=== PATIENT | female | born 1940 | race Caucasian/White ===

== ENCOUNTER 2019-11-03 11:24 | Inpatient (IN) | payer MEDICARE, MEDICAID ==
[~2019-11-03] VITALS: Ht 157.5 cm; Wt 57.2 kg
--- NOTE | 2019-11-03 11:46 | NUR ---
joseph, from [facility], sent by PMD due to failure to thrive x 2 days. PT RESPONSIVE TO PAINFUL STIMULI. ALL EXTREMITIES SLIGHTLY CONTRACTED. SKIN INTACT, WARM, AND DRY. NO EVIDENCE OF SOB, PAIN. NO ACUTE DISTRESS NOTED. ON MONITOR AND READY FOR EVAL.
[2019-11-03] MEDS ORDERED: ONDANSETRON HCL/PF 4 MG/2 ML VIAL ONE (11:48)
[2019-11-03] MEDS ORDERED: IV NS 0.9% 500 ML BAG IV ONE (12:00)
[2019-11-03] MEDS ORDERED: ONDANSETRON HCL/PF 4 MG/2 ML VIAL IVP ONE (12:00)
--- NOTE | 2019-11-03 12:08 | NUR ---
MOVE SHEET SUBMITTED TO ADMITTING AND CALLED FOR MS BED.
[2019-11-03 12:11] LABS: BASOPHILS # (AUTO) 0.1 /CMM (0.0-0.2); BASOPHILS % (AUTO) 0.6 % (0.0-2.0); EOSINOPHILS % (AUTO) 1.1 % (0.0-6.0); HEMATOCRIT 45 % (33-45); HEMOGLOBIN 14.3 g/dL (11.5-14.8); LYMPHOCYTES # (AUTO) 1.5 /CMM (0.8-4.8); MEAN CORPUSCULAR HGB CONC 32 g/dl (31.0-36.0); MEAN CORPUSCULAR VOLUME 91 fL (82-100); MONOCYTES # (AUTO) 0.7 /CMM (0.1-1.30); NEUTROPHILS # (AUTO) 9.3 /CMM (1.8-8.9); NEUTROPHILS % (AUTO) 79.3 % (43.0-81.0); PLATELET COUNT (AUTO) 208 /CMM (150-450); RED BLOOD CELL COUNT(AUTO) 4.92 MIL/uL (4.0-5.2); WHITE BLOOD COUNT (AUTO) 11.8 K/uL (4.3-11.0)
[2019-11-03 12:28] LABS: ALANINE AMINOTRANSFERASE 39 U/L (12-78); ALBUMIN 4.3 g/dL (3.4-5.0); ALKALINE PHOSPHATASE 76 U/L (46-116); ASPARTATE AMINOTRANSFERASE 41 U/L (15-37); BILIRUBIN,DIRECT 0.1 mg/dL (0.0-0.2); BILIRUBIN,TOTAL 0.6 mg/dL (0.2-1.0); CARBON DIOXIDE 30 mmol/L (21-32); CHLORIDE 108 mmol/L (98-107); CREATININE 1.1 mg/dL (0.6-1.3); GLUCOSE 126 mg/dL (74-106); SODIUM SERUM 147 mmol/L (136-145); TOTAL PROTEIN, SERUM 8.3 g/dL (6.4-8.2); UREA NITROGEN, BLOOD 45 mg/dL (7-18)
--- NOTE | 2019-11-03 12:30 | NUR ---
URINE SENT TO STAT LAB
[2019-11-03 12:31] LABS: SERUM AMMONIA 12 umol/L (11-32)
[2019-11-03 12:34] LABS: CALCIUM, SERUM 9.8 mg/dL (8.5-10.1); LIPASE 119 U/L (73-393)
--- NOTE | 2019-11-03 12:39 | NUR ---
DOOR FRAMER AT BEDSIDE
[2019-11-03] MEDS ORDERED: PANT20TA2 PO (12:40)
[2019-11-03] MEDS ORDERED: LETR2.5T PO (12:40)
[2019-11-03] MEDS ORDERED: MAG-55 PO (12:40)
[2019-11-03] MEDS ORDERED: LORA-259 PO (12:40)
[2019-11-03] MEDS ORDERED: BISA10SU11 RC (12:40)
[2019-11-03] MEDS ORDERED: SODI3.5O5 RIGHTEYE (12:40)
[2019-11-03] MEDS ORDERED: MAGN400O6 PO (12:40)
[2019-11-03] MEDS ORDERED: SENN-18 PO (12:40)
[2019-11-03] MEDS ORDERED: SPIR25TA PO (12:40)
[2019-11-03] MEDS ORDERED: METO-357 PO (12:40)
[2019-11-03] MEDS ORDERED: LATA2.5D7 RIGHTEYE (12:40)
[2019-11-03] MEDS ORDERED: LACT10SO PO (12:40)
[2019-11-03] MEDS ORDERED: ONDA4TAB11 PO (12:40)
[2019-11-03] MEDS ORDERED: IPRA0.2S49 IH (12:40)
[2019-11-03] MEDS ORDERED: ACET325T53 PO (12:40)
[2019-11-03] MEDS ORDERED: APIX2.5T PO (12:40)
[2019-11-03 12:48] LABS: APPEARANCE,URINE Slightly Cloudy (CLEAR); BILIRUBIN,URINE Negative (NEGATIVE); BLOOD, URINE Small Ery/uL (NEGATIVE); COLOR,URINE Yellow (YELLOW); KETONES,URINE 15 (NEGATIVE); LEUKOCYTE ESTERASE ,URINE Trace (NEGATIVE); NITRITE, URINE Positive (NEGATIVE); PH,URINE 5.5 (5.0-8.0); PROTEIN,URINE 30 mg/dl (NEGATIVE); UGLUCOSE Negative (NEGATIVE); UROBILINOGEN,URINE 0.2 EU/dL (0.2)
[2019-11-03 12:52] LABS: BACTERIA,URINE Many /HPF (None Seen); WBC,URINE 21-50 /HPF (0-3)
[2019-11-03 12:53] LABS: SQUAMOUS EPITHELIAL CELL,UR Few /HPF (None Seen)
--- NOTE | 2019-11-03 12:57 | NUR ---
dampproofer emergency services professional JOHN lead.
[2019-11-03] MEDS ORDERED: IV NS 0.9% 1,000 ML BAG IV ONE (13:00)
[2019-11-03] MEDS ORDERED: CEFTRIAXONE 1GM BAG (ER ONLY) 50 ML IV ONE (13:02)
--- NOTE | 2019-11-03 13:13 | NUR ---
PT TAKEN TO RADIOLOGY FOR CT
[2019-11-03] MEDS ORDERED: CEFTRIAXONE 1GM BAG (ER ONLY) 1 GM/50 ML PIGGYBACK IV ONE (13:30)
--- NOTE | 2019-11-03 14:14 | NUR ---
BOARD FINISHER CANCELED
--- NOTE | 2019-11-03 15:02 | NUR ---
PT RESTING COMFORTABLY IN BED. NO COMPLAINTS AT THIS TIME. VSS. WILL CONT TO MONITOR.
--- NOTE | 2019-11-03 15:52 | NUR ---
BED ASSIGN [id number]
--- NOTE | 2019-11-03 17:27 | NUR ---
REPORT GIVEN TO DORA HARRINGTON FOR [id number] MS, NBA SCHREIBER
--- NOTE | 2019-11-03 18:37 | NUR ---
PT TRANSFFERED TO UNIT VIA KRYSTLE
--- NOTE | 2019-11-03 18:54 | NUR ---
MS/RN NOTES ADMITTED A FEMALE PATIENT 79 Y/O FROM ER VIA GURNEY ALERT AND ORIENTED X2. PATIENT SKIN IS INTACT. NO RESPIRATORY DISTRESS NOTED. PATIENT VERBALIZED THAT SHE WANT TO SLEEP. WILL ENDORSED TO SEARCH ANALYST FOR DEZ.
[2019-11-03 20:00] VITALS: BP_SYST 112; BP_SYST 94; BP_DIAS 64; BP_DIAS 66
--- NOTE | 2019-11-03 20:00 | NUR ---
RN Notes Patient awake, alert and oriented x2 with periods of confusion. Vital signs stable, afebrile. Denies any pain and discomfort at this time, on room air with good saturation. Tele monitor reads sinus rhythm with heart rate at 62. Skin check done, noted with redness on sacral and perineal area, cleansed with soap and water and skin barrier applied. Paged Dr Wellington for admitting orders, awaiting for return call. Will continue to monitor.
[2019-11-03] MEDS ORDERED: ACETAMINOPHEN 325 MG TABLET PO PRN (21:30)
[2019-11-03] MEDS ORDERED: BISACODYL SUPP (10 MG) 10 MG/SUPP.RECT SUPP.RECT RC PRN (21:30)
[2019-11-03] MEDS ORDERED: MORPHINE SULFATE SOLN CONCENTRATED 20 MG/ML SL PRN (21:30)
[2019-11-03] MEDS ORDERED: IPRATROPIUM NEB FS 0.5 MG/2.5 ML AMPUL.NEB NEB PRN (21:30)
[2019-11-03] MEDS ORDERED: HALOPERIDOL DECANOATE IM 100 MG/ML AMPUL IM ONE ×2 (21:30→22:30)
[2019-11-03] MEDS ORDERED: MAGNESIUM HYDROXIDE 30 ML UDC PO PRN (21:30)
[2019-11-03] MEDS ORDERED: LACTULOSE 10 G/15 ML UDC (PYXIS) PO PRN (21:30)
[2019-11-03 22:00] VITALS: BP 110/59
[2019-11-03] MEDS: LATANOPROST EYE DROP 0.005% 2.5 ML BOTTLE RIGHTEYE SCH (22:00)
[2019-11-03] MEDS ORDERED: IV NS 0.9% 1,000 ML BAG IV PRN (22:00)
[2019-11-04] VITALS (7 sets, daily range): BP systolic 101–129; BP diastolic 51–74
--- NOTE | 2019-11-04 04:30 | NUR ---
RN Notes 11/03 - Admission orders received from Dr Wellington, continue all medications from SNF except lorazepam. IVF NS at 75 ml/hr and Haldol decanoate 50 mg IM x1 also ordered, called pharmacy to verify orders. 11/03 - Called pharmacy again to follow up on the Haldol order. Spoke to Jennifer, she said that she saw that hospital pharmacist is working on it, but she will check again the order. 11/03 @ 5 - F/U with the pharmacy regarding haldol order. Spoke to Jennifer, she said that the patient should start with PO haldol first to stabilize the patient before giving IM haldol decanoate. And its not showing in patient medication list. Patient is calm and cooperative at this time no indication for now per pharmacist and needs to clarify with Dr Wellington. Called Dr Wellington, he said that the patient is refusing PO meds and patient is on this medication for 6 months. Pharmacy made aware, awaiting to verify haldol order. 0030 - Medication not verified at this time, pharmacy wants to know when was the last dose administered to the patient. Haldol IM usually given [id number]. 0430 - Called [facility] and spoke to Nurse Bernal, he said that there's no standing order for the haldol decanoate for this patient. He even looked at the medication administration record and haldol was not administered since july last year. Will follow up with Dr Wellington in the morning. Patient is calm and cooperative, compliant with care and treatment.
[2019-11-04] MEDS ORDERED: SIMETHICONE 80 MG TAB.CHEW PO PRN (05:30)
--- NOTE | 2019-11-04 07:15 | NUR ---
RN Notes Patient asleep, no signs of distress and discomfort noted. Vital signs stable, afebrile. Patient more alert, calm and cooperative with care and treatment. Current diet tolerated well, able to eat egg sandwich and apple juice. Haldol order not administered, not verified by pharmacy.Kept clean and dry. All needs attended. Will continue to monitor.
[2019-11-04] MEDS: SPIRONOLACTONE 25 MG TABLET PO SCH (08:26)
[2019-11-04] MEDS: PANTOPRAZOLE 40 MG TABLET.DR PO SCH (08:26)
[2019-11-04] MEDS: LETROZOLE 2.5 MG TABLET PO SCH (08:29)
[2019-11-04] MEDS: APIXABAN 2.5 MG TABLET PO SCH ×2 (08:29→16:39)
[2019-11-04] MEDS: SODIUM CHLORIDE 5% OPHTH OINT 3.5 GM TUBE RIGHTEYE SCH ×3 (09:00→16:40)
[2019-11-04] MEDS ORDERED: LETROZOLE 2.5 MG TABLET PO SCH (09:00)
--- NOTE | 2019-11-04 09:26 | NUR ---
WOUND CARE S CONSULT : SEEN PATIENT AT BEDSIDE, PATIENT PRESENTS WITH INCONTINENCE , CURRENT SCOOBY SCALE IS 11, PATIENT NOTED TO HAVE SACRAL,BOTH BUTTOCKS INCONTINENCE ASSOCIATED SKIN DAMAGE, AND REDNESS PERINEAL AREA, POA,DISCUSSED WITH NURSING STAFF ,RECOMMENDATION MADE FOR SKIN PROTECTION AND CARE ,WILL SEE MD JACOB IN AGREEMENT WITH PLAN OF CARE,ISOFLEX MARS BED IN USE Addendum: 11/04/19 at 0936 by LENORE SANDY RN Amended: Links added.
--- NOTE | 2019-11-04 09:31 | NUR ---
MS/RN NOTE NON-ADMIN Pharmacy does not have Doc-128 eye drops. Stated they will order it and it will be ready for tomorrow.
[2019-11-04] MEDS ORDERED: HALOPERIDOL DECANOATE IM 100 MG/ML AMPUL IM ONE (13:00)
[2019-11-04] MEDS: CLOTRIMAZOLE 1% 15 GM TUBE TP SCH (16:40)
--- NOTE | 2019-11-04 19:38 | NUR ---
MS/RN CLOSING NOTE Patient is resting in bed, A/O x2, showing no signs of acute distress or SOB, saturating >95% on RA. IV line in the right wrist is clean and intact running NS @ 75ml/hr. Patient kept clean and dry throughout shift, all patient needs met, all due meds given. Bed is in lowest position, side rails x3 in upright position, call light is within reach and patient is aware of how to call for assistance when needed. Will endorse to power and recovery shift engineer.
--- NOTE | 2019-11-04 20:18 | NUR ---
MS TOOL AND DIE REPAIRER INITIAL NOTES RECEIVED REPORT FROM AM NURSE AND SEEN PT IN BED AWAKE AND ALERT ,CONFUSED WITH IVF NS AT 75ML/HR INFUSING AT THIS TIME. NOT IN ANY ACUTE DISTRESS NOTED. RESPIRATION EVEN AND NON-LABORED, SKIN WARM AND DRY TO TOUCH. KEPT HER WARM AND COMFORTABLE AT ALL TIMES. BED IN LOW AND LOCK IN POSITION WITH SIDE RAILS X3 UP. BED ALARM SET FOR SAFETY. WILL CONTINUE MONITORING.
[2019-11-04] MEDS: SENNOSIDES 8.6 MG TABLET PO SCH (21:45)
[2019-11-04] MEDS: ATORVASTATIN 10 MG TABLET PO SCH (21:46)
[2019-11-04] MEDS: METOPROLOL SUCCINATE 50 MG TAB.SR.24H PO SCH (21:46)
[2019-11-04] MEDS: LATANOPROST EYE DROP 0.005% 2.5 ML BOTTLE RIGHTEYE SCH (21:48)
[2019-11-04] MEDS: IV NS 0.9% 1,000 ML IV PRN ×2 (22:12)
--- NOTE | 2019-11-05 00:30 | NUR ---
ms optometry professor notes pt sleeping comfortably in bed without any acute distress noted. ivf still infusing.
--- NOTE | 2019-11-05 01:55 | NUR ---
ms hydraulics teacher notes pt sleeping comfortably in bed without any acute distress noted. IVF still infusing.
[2019-11-05 06:28] LABS: BASOPHILS # (AUTO) 0.1 /CMM (0.0-0.2); BASOPHILS % (AUTO) 0.8 % (0.0-2.0); EOSINOPHILS % (AUTO) 2.1 % (0.0-6.0); HEMATOCRIT 39 % (33-45); HEMOGLOBIN 12.5 g/dL (11.5-14.8); LYMPHOCYTES % (AUTO) 29.6 % (20.0-44.0); MEAN CORPUSCULAR HGB CONC 32 g/dl (31.0-36.0); MEAN CORPUSCULAR VOLUME 90 fL (82-100); MONOCYTES # (AUTO) 0.5 /CMM (0.1-1.30); MONOCYTES % (AUTO) 6.7 % (2.0-12.0); NEUTROPHILS # (AUTO) 4.1 /CMM (1.8-8.9); NEUTROPHILS % (AUTO) 60.8 % (43.0-81.0); PLATELET COUNT (AUTO) 149 /CMM (150-450); RED BLOOD CELL COUNT(AUTO) 4.33 MIL/uL (4.0-5.2); WHITE BLOOD COUNT (AUTO) 6.7 K/uL (4.3-11.0)
--- NOTE | 2019-11-05 06:42 | NUR ---
ms varnish filterer closing notes pt back to sleep after morning care done. all due meds given and all needs met. stable seth the night and slept well. no signs of any acute distress noted. ivf still infusing. kept her warm and comfortable at all times.bed alarm set for pt safety. will endorse to am nurse for continuity of care.
[2019-11-05 06:53] LABS: CALCIUM, SERUM 8.5 mg/dL (8.5-10.1); CREATININE 0.8 mg/dL (0.6-1.3); POTASSIUM 4.3 mmol/L (3.5-5.1)
--- NOTE | 2019-11-05 07:35 | NUR ---
MS/RN OPENING NOTE Patient is resting in bed, A/O x2, showing no signs of acute distress or SOB, saturating >95% on RA. IV line in the right wrist is clean and intact running NS @ 75ml/hr. Patient has no complaints of pain at this time. Bed is in lowest position, side rails x3 in upright position, fall, safety and aspiration precautions enforced. Will endorse to night club manager.
[2019-11-05 08:00] VITALS: BP 125/56
[2019-11-05] MEDS: SPIRONOLACTONE 25 MG TABLET PO SCH (08:48)
[2019-11-05] MEDS: APIXABAN 2.5 MG TABLET PO SCH ×2 (08:49→17:10)
[2019-11-05] MEDS: LETROZOLE 2.5 MG TABLET PO SCH (08:49)
[2019-11-05] MEDS: CLOTRIMAZOLE 1% 15 GM TUBE TP SCH ×2 (08:50→17:12)
[2019-11-05] MEDS: PANTOPRAZOLE 40 MG TABLET.DR PO SCH (08:52)
[2019-11-05] MEDS: SODIUM CHLORIDE 5% OPHTH OINT 3.5 GM TUBE RIGHTEYE SCH ×3 (09:00→17:12)
--- NOTE | 2019-11-05 09:24 | NUR ---
MS/RN NON-ADMIN Eye drops (sodium chloride cha) not yet available at pharmacy.
[2019-11-05] MEDS: IV NS 0.9% 1,000 ML IV PRN (13:43)
[2019-11-05 16:00] VITALS: BP 116/68
--- NOTE | 2019-11-05 19:58 | NUR ---
RN OPENING NOTES RECEIVED PATIENT AWAKE IN BED. A/OX1 .NO SIGNS OF DISTRESS OR DISCOMFORT. BREATHING EVEN AND UNLABORED. IV ACCESS IN LFA WITH NS INFUSING, PATENT AND INTACT, NO SIGNS OF REDNESS OR INFILTRATION. BED IN LOW LOCKED POSITION WITH SIDE RAILS X2. CALL LIGHT WITHIN REACH. WILL CONTINUE TO MONITOR.
--- NOTE | 2019-11-05 19:59 | NUR ---
MS/RN CLOSING NOTE Patient is resting in bed, A/O x2, showing no signs of acute distress or SOB, saturating >95% on RA. IV line in the left forearm is clean and intact running NS @ 75ml/hr. Patient has no complaints of pain at this time. All patient needs met, all due meds given. Bed is in lowest position, side rails x3 in upright position, fall, safety and aspiration precautions enforced. Will endorse to retail shift supervisor.
[2019-11-05] MEDS: METOPROLOL SUCCINATE 50 MG TAB.SR.24H PO SCH (21:13)
[2019-11-05] MEDS: ATORVASTATIN 10 MG TABLET PO SCH (21:17)
[2019-11-05] MEDS: SENNOSIDES 8.6 MG TABLET PO SCH (21:17)
[2019-11-05] MEDS: MIRTAZAPINE 15 MG TABLET PO SCH (21:17)
[2019-11-05] MEDS: LATANOPROST EYE DROP 0.005% 2.5 ML BOTTLE RIGHTEYE SCH (21:18)
--- NOTE | 2019-11-06 07:08 | NUR ---
RN CLOSING NOTES PATIENT RESTING IN BED, EASILY AROUSABLE. A/OX1 .NO SIGNS OF DISTRESS OR DISCOMFORT. BREATHING EVEN AND UNLABORED. IV ACCESS IN LFA WITH NS INFUSING, PATENT AND INTACT, NO SIGNS OF REDNESS OR INFILTRATION. ALL NEEDS MET. NO SIGNIFICANT CHANGES THROUGH THE NIGHT. PATIENT KEPT CLEAN DRY AND COMFORTABLE. BED IN LOW LOCKED POSITION WITH SIDE RAILS X2. CALL LIGHT WITHIN REACH. ENDORSED TO AM SHIFT FOR DEZ.
--- NOTE | 2019-11-06 07:19 | NUR ---
MS RN OPENING NOTES RECEIVED PATIENT AWAKE IN BED IN NO ACUTE SIGNS OF DISTRESS. A/O X1. CALM AND QUIET AT THIS TIME. ON ROOM AIR, BREATHING EVEN AND UNLABORED. IV ACCESS ON LFA G#22 INTACT AND PATENT, IVF OF NS @ 75ML/HR INFUSING WELL, NO SIGNS OF REDNESS OR INFILTRATION. SAFETY MEASURES IN PLACE: BED IN LOW LOCKED POSITION WITH SIDE RAILS UP X2. CALL LIGHT WITHIN REACH. WILL CONTINUE TO MONITOR.
[2019-11-06] MEDS: PANTOPRAZOLE 40 MG TABLET.DR PO SCH (07:45)
[2019-11-06 08:00] VITALS: BP 121/86
[2019-11-06] MEDS: SPIRONOLACTONE 25 MG TABLET PO SCH (08:20)
[2019-11-06] MEDS: APIXABAN 2.5 MG TABLET PO SCH ×2 (08:20→17:27)
[2019-11-06] MEDS: LETROZOLE 2.5 MG TABLET PO SCH (08:22)
[2019-11-06] MEDS: CLOTRIMAZOLE 1% 15 GM TUBE TP SCH ×2 (08:29→17:27)
[2019-11-06] MEDS: SODIUM CHLORIDE 5% OPHTH OINT 3.5 GM TUBE RIGHTEYE SCH ×3 (08:29→17:26)
[2019-11-06] MEDS: IV NS 0.9% 1,000 ML IV PRN (15:16)
[2019-11-06 16:00] VITALS: BP 132/65
--- NOTE | 2019-11-06 18:40 | NUR ---
MS RN CLOSING NOTES PATIENT IN BED AWAKE WITH FAMILY AT BEDSIDE AT THIS TIME. HOB KEPT ELEVATED. A/O X1. VERBALLY RESPONSIVE WITH EPISODE OF RESTLESSNESS AND CONFUSION NOTED, REDIRECTED PRN. ON ROOM AIR, TOLERATING WELL WITH NO ACUTE RESPIRATORY DISTRESS NOTED DURING THE DAY. IV ACCESS ON LFA G#22 INTACT AND PATENT, IVF OF NS @ 75ML/HR INFUSING WELL, NO SIGNS OF REDNESS OR INFILTRATION. SAFETY MEASURES IN PLACE: BED IN LOW LOCKED POSITION WITH SIDE RAILS UP X2. CALL LIGHT WITHIN REACH. ALL NEEDS AND CARE PROVIDED WELL. WILL ENDORSE TO COOK FRUIT NURSE FOR DEZ.
--- NOTE | 2019-11-06 19:00 | NUR ---
RN medsurg opening notes Received Pt from morning nurse. Pt is resting in bed comfortably with family at the bedside. Pt is alert and orientedX1. Respiration is normal in room air. No SOB. No S/S of distress noted. IV sites at LFA# 22 is clean, intact, infusing well NS @ 75 ml/hr. Safety precautions is maintained. Bed at low position, brakes locked, side rails upX3 and call light is within reach. Will continue to monitor.
[2019-11-06 20:00] VITALS: BP_SYST 154; BP_DIAS 100; BP_DIAS 101
[2019-11-06 21:00] VITALS: BP 153/75
[2019-11-06] MEDS: SENNOSIDES 8.6 MG TABLET PO SCH (21:04)
[2019-11-06] MEDS: ATORVASTATIN 10 MG TABLET PO SCH (21:04)
[2019-11-06] MEDS: MIRTAZAPINE 15 MG TABLET PO SCH (21:04)
[2019-11-06] MEDS: METOPROLOL SUCCINATE 50 MG TAB.SR.24H PO SCH (21:06)
[2019-11-06] MEDS: LATANOPROST EYE DROP 0.005% 2.5 ML BOTTLE RIGHTEYE SCH (21:09)
[2019-11-06 22:00] VITALS: BP 122/70
--- NOTE | 2019-11-07 06:40 | NUR ---
RN medsurg closing notes Pt is alert and orientedX1. Pt is sleeping in bed comfortably. Respiration is normal in room air. No SOB. No S/S of distress noted. VS is stable. Iv sites at LFA# 22 is clean, intact, patent and infusing well NS @ 75ml/hr. Routine meds were given as ordered. Kept Pt clean, dry and comfortable. All needs met and attended. Safety precautions is maintained. Bed at low position, brakes locked, side rails upX3 and call light is within reach and HOB elevated. Will endorse to morning nurse for DEZ
--- NOTE | 2019-11-07 07:46 | NUR ---
MS RN OPENING NOTES PATIENT IN BED RESTING COMFORTABLY. PATIENT IN NO ACUTE DISTRESS. NO SOB NOTED. PATIENT BREATHING IS EVEN AND UNLABORED. IV PATENT AND INTACT. PATIENT SAFETY PRECAUTIONS IN PLACE. PATIENT BED IS LOCKED AND IN LOWEST POSITION. CALL LIGHT WITHIN REACH. WILL CONTINUE TO MONITOR.
[2019-11-07 08:00] VITALS: BP 119/75
[2019-11-07] MEDS: PANTOPRAZOLE 40 MG TABLET.DR PO SCH (08:19)
[2019-11-07] MEDS: SPIRONOLACTONE 25 MG TABLET PO SCH (08:19)
[2019-11-07] MEDS: APIXABAN 2.5 MG TABLET PO SCH ×2 (08:20→16:32)
[2019-11-07] MEDS: LETROZOLE 2.5 MG TABLET PO SCH (08:20)
[2019-11-07] MEDS: SODIUM CHLORIDE 5% OPHTH OINT 3.5 GM TUBE RIGHTEYE SCH ×3 (08:22→16:36)
[2019-11-07] MEDS: CLOTRIMAZOLE 1% 15 GM TUBE TP SCH ×2 (08:22→16:36)
[2019-11-07 16:00] VITALS: BP 112/62
--- NOTE | 2019-11-07 19:00 | NUR ---
MS MANAGER MOLECULAR NOTE PATIENT MEDICALLY STABLE FOR DISCHARGE. PATIENT IN NO ACUTE DISTRESS. NO SOB NOTED. PATIENT BREATHING IS EVEN AND UNLABORED. PATIENT VITAL SIGNS WNL. PATIENT IV REMOVED. SKIN ASSESSED, NO NEW SKIN BREAKDOWN NOTED. PATENT BELONGINGS WENT HOME WITH DAUGHTER AND SON. DC INSTRUCTIONS PROVIDED, PATIENT UNABLE TO COMPREHEND. DC INSTRUCTIONS SIGNED BY TWO NURSES. PATIENT PLACED ON A 5150 HOLD. PATIENT TO BE DISCHARGED TO GPS AT [facility]. PATIENT KEPT CLEAN, DRY, AND COMFORTABLE THROUGHOUT SHIFT. FAMILY UPDATED. MD AWARE OF DISCHARGE.
[2019-11-08] MEDS ORDERED: MIRT7.5T10 PO (07:41)
[2019-11-08] MEDS ORDERED: ATOR10TA PO (07:41)
[2019-11-08] MEDS ORDERED: CLOT15CR63 TP (07:41)
[2019-11-08] MEDS ORDERED: IPRA0.2S9 IH (07:41)
[2019-11-08] MEDS ORDERED: SIME40DR2 PO (07:41)
== END 2019-11-07 18:50 | DRG 683 ==
LOC: ER 11:24 → TELE 17:16 → MED 11-04 09:01
PROVIDERS: ADMIT Internal Medicine; ATTEND Internal Medicine
DX: N17.9 Acute kidney failure, unspecified (principal); G93.40 Encephalopathy, unspecified; F03.91 Unspecified dementia, unspecified severity, with behavioral disturbance; E86.0 Dehydration; F20.9 Schizophrenia, unspecified; I11.0 Hypertensive heart disease with heart failure; I50.9 Heart failure, unspecified; E78.5 Hyperlipidemia, unspecified; Z90.12 Acquired absence of left breast and nipple; Z87.891 Personal history of nicotine dependence; Z82.49 Family history of ischemic heart disease and other diseases of the circulatory system; Z82.3 Family history of stroke; F31.9 Bipolar disorder, unspecified; Z88.0 Allergy status to penicillin; Z79.899 Other long term (current) drug therapy; Z79.51 Long term (current) use of inhaled steroids; C50.912 Malignant neoplasm of unspecified site of left female breast; C50.911 Malignant neoplasm of unspecified site of right female breast; Z86.73 Personal history of transient ischemic attack (TIA), and cerebral infarction without residual deficits; F29 Unspecified psychosis not due to a substance or known physiological condition; F39 Unspecified mood [affective] disorder; J44.9 Chronic obstructive pulmonary disease, unspecified; R62.7 Adult failure to thrive; I48.0 Paroxysmal atrial fibrillation; H54.40 Blindness, one eye, unspecified eye
CPT/HCPCS: 36415; 70450-TC; 71045-TC; 80048-TC; 80076-TC; 81000-TC; 82140-TC; 82962-TC; 83690-TC; 84484-TC; 85025-TC; 85730-TC; 87081-TC; 87086-TC; 87186-TC; G0378; J0696; J1631; J2405; J7030; J7040

== ENCOUNTER 2019-11-07 19:39 | Inpatient (IN) | payer MEDICARE, OTHER ==
[~2019-11-07] VITALS: Ht 157.5 cm; Wt 57.2 kg
--- NOTE | 2019-11-07 19:35 | NUR ---
GPS RN NOTES: ADMITTED 79 Y/O FEMALE. PT ADMITTED FROM [facility] TO GPS ON A 5150. PER HOLD PT IS HERE DUE TO INCREASED CONFUSION AND REFUSING CARE. ACCORDING TO PATIENT DAUGHTER PT HAS BEEN NON COMPLIANT WITH MEDICATION, NOT EATING OR DRINKING WATER, REFUSING CARE, AND INCREASE CONFUSION. UPON FACE TO FACE ASSESSMENT PT IS ALERT ORIENTED X1, CONFUSED, FORGETFUL, RESERVED, GUARDED, UNCOOPERATIVE, DISORGANIZED, IMPAIRED JUDGMENT, AND EASILY AGITATED. PT DENIES S/I OR H/I AT THIS TIME. PT STATED, " WHAT DO YOU WANT? " PT IS LEGALLY BLIND AND BED PASCAL. PT REFUSED TO SIGN PAPERS DUE TO CONFUSION. PTS SON CAME TO VISIT AND IS AT BEDSIDE. ENVIRONMENTAL SAFETY CHECK DONE Q15 MIN. ENCOURAGE PT TO VERBALIZED FEELINGS AND CONCERNS TO STAFF. ORIENTED TO THE UNIT. [facility] MED AWARE OF PTS ADMISSION AND NOTIFIED INSPECTOR OF DREDGING DR FOR MED RECON. THE INSPECTOR OF DREDGING DR WILL ASSESS PT TOMORROW MORNING. BELONGINGS AND CONTRABAND WERE DONE. NURSING ASSESSMENT DONE. 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 PICTURES NOTED AND FILED IN THE CHART. PT RIGHTS DISCUSSED BY [employer]. PROVIDED PT WITH HANDBOOK AND MED GUIDE. VITALS CHECKED WNL. NO S/S OF RESP DISTRESS. BREATHING EVEN AND UNLABORED. CONTINUE TO MONITOR.
[~2019-11-07 19:39] MED LIST: ACET325T53 PO; APIX2.5T PO; BISA10SU11 RC; IPRA0.2S49 IH; LACT10SO PO; LATA2.5D7 RIGHTEYE; LETR2.5T PO; LORA-259 PO; MAG-55 PO; MAGN400O6 PO; METO-357 PO; ONDA4TAB11 PO; PANT20TA2 PO; SENN-18 PO; SODI3.5O5 RIGHTEYE; SPIR25TA PO
[2019-11-07] MEDS ORDERED: BLOOD SUGAR DIAGNOSTIC 1 EACH STRIP IN ONE (20:00)
[2019-11-07] MEDS ORDERED: ACETAMINOPHEN 325 MG TABLET PO PRN (20:00)
[2019-11-07] MEDS ORDERED: ZOLPIDEM TARTRATE 5 MG TABLET PO PRN (20:00)
[2019-11-07] MEDS ORDERED: MAG HYDROX/AL HYDROX/SIMETH 30 ML UDC PO PRN (20:00)
[2019-11-07] MEDS ORDERED: QUETIAPINE FUMARATE 25 MG TABLET PO PRN (20:00)
[2019-11-07] MEDS ORDERED: MAGNESIUM HYDROXIDE 30 ML UDC PO PRN (20:00)
--- NOTE | 2019-11-07 21:00 | NUR ---
GPS RN NOTES: INFORMED MD NOTIFIED DR ALLEN REGARDING PT ADMISSION AND MED RECON. DR STATED HE WILL DO MED RECON AND ASSESS PT IN THE MORNING. CONTINUE TO MONITOR.
[2019-11-07 21:09] VITALS: BP 105/66
[2019-11-07 23:30] VITALS: BP 105/66
[2019-11-08] MEDS ORDERED: ATOR10TA PO (07:41)
[2019-11-08] MEDS ORDERED: IPRA0.2S9 IH (07:41)
[2019-11-08] MEDS ORDERED: CLOT15CR63 TP (07:41)
[2019-11-08] MEDS ORDERED: SIME40DR2 PO (07:41)
[2019-11-08] MEDS ORDERED: MIRT7.5T10 PO (07:41)
[2019-11-08 08:00] VITALS: BP 110/63
--- NOTE | 2019-11-08 09:00 | NUR ---
RN NOTE-PT RESTING QUIETLY IN BED. NO DISTRESS. NEEDS ATTENDED. CONFUSED, ORIENTED TO PERSON ONLY. ASSISTED W ROM AND REPOSITIONING
[2019-11-08 16:09] VITALS: BP 155/88
--- NOTE | 2019-11-08 16:37 | NUR ---
RN NOTE- MED RECON DONE WITH TELEPHONE ORDER FROM DR WATSON. CONTINUE ALL CURRENT MEDS. DR WATSON WILL BE AT UNIT AROUND [facility] PT. PHARMACY FAXED AND NOTIFIED
[2019-11-08] MEDS ORDERED: SIMETHICONE 80 MG TAB.CHEW PO PRN (17:00)
[2019-11-08] MEDS ORDERED: MAGNESIUM HYDROXIDE 30 ML UDC PO PRN (17:00)
[2019-11-08] MEDS ORDERED: ACETAMINOPHEN 325 MG TABLET PO PRN (17:00)
[2019-11-08] MEDS ORDERED: LACTULOSE 10 G/15 ML UDC (PYXIS) PO PRN (17:00)
[2019-11-08] MEDS ORDERED: IPRATROPIUM NEB FS 0.5 MG/2.5 ML AMPUL.NEB IH PRN (17:00)
[2019-11-08] MEDS ORDERED: BISACODYL SUPP (10 MG) 10 MG/SUPP.RECT SUPP.RECT RC PRN (17:00)
[2019-11-08] MEDS: CLOTRIMAZOLE 1% CREAM 24 GM TUBE TP SCH (17:00)
[2019-11-08] MEDS: SPIRONOLACTONE 25 MG TABLET PO SCH (17:08)
[2019-11-08] MEDS: APIXABAN 2.5 MG TABLET PO SCH (17:09)
[2019-11-08] MEDS: METOPROLOL SUCCINATE 50 MG TAB.SR.24H PO SCH (17:10)
[2019-11-08] MEDS: SODIUM CHLORIDE 5% OPHTH OINT 3.5 GM TUBE RIGHTEYE SCH (18:30)
[2019-11-08 20:09] VITALS: BP 143/95
[2019-11-08] MEDS: SENNOSIDES 8.6 MG TABLET PO SCH (22:00)
[2019-11-08] MEDS: MIRTAZAPINE 15 MG TABLET PO SCH (22:00)
[2019-11-08] MEDS: ATORVASTATIN 10 MG TABLET PO SCH (22:00)
[2019-11-08] MEDS: LATANOPROST EYE DROP 0.005% 2.5 ML BOTTLE RIGHTEYE SCH (22:00)
--- NOTE | 2019-11-08 22:00 | NUR ---
GPS RN NOTES: SEEN PATIENT IN THE ROOM, AWAKE, NO COMPLAINS OF PAIN OR DISCOMFORT THIS TIME OF ASSESSMENT. PATIENT IS LEGALLY BLIND WITH 1:1 SITTER IN CLOSE PROXIMITY. REALITY ORIENTATION DONE. PATIENT WAS ALREADY ASLEEP DURING MEDICATIONS ADMINISTRATION.SAFETY AND FALL PRECAUTIONS OBSERVED. Q15 MIN CHECKS CONTINUED. WILL CONTINUE TO MONITOR PATIENT FOR MOOD, SAFETY AND BEHAVIOR.
[2019-11-09] MEDS: PANTOPRAZOLE 40 MG TABLET.DR PO SCH (07:10)
[2019-11-09 08:00] VITALS: BP 126/62
[2019-11-09] MEDS: SPIRONOLACTONE 25 MG TABLET PO SCH (08:26)
[2019-11-09] MEDS: APIXABAN 2.5 MG TABLET PO SCH ×2 (08:27→17:15)
[2019-11-09] MEDS: METOPROLOL SUCCINATE 50 MG TAB.SR.24H PO SCH (08:28)
[2019-11-09] MEDS: SODIUM CHLORIDE 5% OPHTH OINT 3.5 GM TUBE RIGHTEYE SCH ×3 (08:37→17:37)
[2019-11-09] MEDS: LETROZOLE 2.5 MG TABLET PO SCH (09:00)
--- NOTE | 2019-11-09 09:00 | NUR ---
RN NOTE- FED PT AT BREAKFAST. CONSUMING 50-75% MEALS. PT RESTING QUIETLY IN BED. NO DISTRESS. NEEDS ATTENDED. CONFUSED, ORIENTED TO PERSON ONLY. ASSISTED W ROM AND REPOSTIONING
[2019-11-09] MEDS: CLOTRIMAZOLE 1% CREAM 24 GM TUBE TP SCH ×2 (09:45→17:37)
--- NOTE | 2019-11-09 14:27 | NUR ---
Family Contact: SW spoke to the pts daughter, Katey ([phone]), who stated that she would like the pt to remain in the correction facility setting and stated that the pt has been a resident of [facility] for the past 9 years. She stated that if it was possible to move the pt closer to the [place] where she lives it would be more convenient but she does not want the pt placed in a facility where she receives lesser care. SW received collateral information for the pts psychosocial assessment as well.
[2019-11-09 16:00] VITALS: BP 128/78
[2019-11-09 20:00] VITALS: BP 158/99
[2019-11-09 20:51] VITALS: BP 158/99
[2019-11-09 21:15] VITALS: BP 134/79
[2019-11-09] MEDS: LATANOPROST EYE DROP 0.005% 2.5 ML BOTTLE RIGHTEYE SCH (21:33)
[2019-11-09] MEDS: MIRTAZAPINE 15 MG TABLET PO SCH (21:47)
[2019-11-09] MEDS: ATORVASTATIN 10 MG TABLET PO SCH (21:47)
[2019-11-09] MEDS: SENNOSIDES 8.6 MG TABLET PO SCH (21:48)
--- NOTE | 2019-11-09 21:48 | NUR ---
REFUSED 220 MEDS PATIENT IS A & O X 1, CONFUSED, DISORIENTED, UNABLE TO FOLLOW DIRECTIONS. PATIENT REFUSED TO SWALLOW HER MEDS & SPAT OUT, EASILY AGITATED, RESTLESS & CONTINUED TO REFUSE TO OPEN HER MOUTH AT ALL. ALL 220 MEDS WERE NOT ADMINISTERED DUE TO PATIENT BEING NON COMPLAINT WITH MEDS. CHARGE NURSE MADE AWARE. Addendum: 11/11/19 at 0356 by RICHARD HILARIO RN REFUSED 2200 MEDS, NOT 220.
[2019-11-10] MEDS: PANTOPRAZOLE 40 MG TABLET.DR PO SCH (07:30)
[2019-11-10 08:00] VITALS: BP 148/80
[2019-11-10] MEDS: CLOTRIMAZOLE 1% CREAM 24 GM TUBE TP SCH ×2 (08:47→17:51)
[2019-11-10] MEDS: APIXABAN 2.5 MG TABLET PO SCH ×2 (08:48→17:50)
[2019-11-10] MEDS: SPIRONOLACTONE 25 MG TABLET PO SCH (08:49)
[2019-11-10] MEDS: METOPROLOL SUCCINATE 50 MG TAB.SR.24H PO SCH (08:50)
[2019-11-10] MEDS: LETROZOLE 2.5 MG TABLET PO SCH (08:55)
[2019-11-10] MEDS: SODIUM CHLORIDE 5% OPHTH OINT 3.5 GM TUBE RIGHTEYE SCH ×3 (08:55→17:45)
--- NOTE | 2019-11-10 11:34 | NUR ---
WOUND CARE CONSULT: PT PRESENTS WITH SLIGHT RASH TO BUTTOCKS. RECOMMENDATIONS MADE FOR SKIN CARE AND PROTECTION. DISCUSSED WITH NURSING STAFF. WILL SEE PRN.
[2019-11-10] MEDS ORDERED: Z GUARD REMEDY 2 OZ OINT TP PRN (12:00)
[2019-11-10] MEDS: Z GUARD REMEDY 2 OZ OINT TP SCH (12:28)
--- NOTE | 2019-11-10 14:30 | NUR ---
Facility Contact: SW called [facility] ([phone]) and spoke to Tila from the Admissions Department who stated that the pt can return to the facility once she is discharged from the hospital.
--- NOTE | 2019-11-10 15:52 | NUR ---
Initial Discharge Plan: Pt currently resides at [facility] located at [address] [place] [address]; ([phone]). Per pts daughter, Katey ([phone]), she would like the pt to return or be placed in a facility near her residence. SW will work with the pt and the MD regarding appropriate discharge planning. SW will form a safe and proper discharge.
[2019-11-10 16:00] VITALS: BP 138/62
--- NOTE | 2019-11-10 16:01 | NUR ---
Group Note: Pt was encouraged to attend group therapy on 11/10/19 at 2pm discussing the topic of concerns around discharge plan. Pt appeared to be confused, disorganized and disoriented. Pt made the following statement: "I was brought here by aliens and my daughter is going to come break my out of this senior care. Get out! They're right behind you." SW attempted to inform the pt that she will be discharged back to her home of 9 years, [facility], but the pt appeared to be confused. SW deemed the pt inappropriate for group therapy due to her cognitive impairment.
[2019-11-10] MEDS: CLOTRIMAZOLE 1% 15 GM TUBE TP SCH (17:00)
[2019-11-10] MEDS: LATANOPROST EYE DROP 0.005% 2.5 ML BOTTLE RIGHTEYE SCH (21:50)
[2019-11-10] MEDS: ATORVASTATIN 10 MG TABLET PO SCH (22:18)
[2019-11-10] MEDS: SENNOSIDES 8.6 MG TABLET PO SCH (22:18)
[2019-11-10] MEDS: MIRTAZAPINE 15 MG TABLET PO SCH (22:18)
--- NOTE | 2019-11-11 03:56 | NUR ---
GPS RN NOTE PATIENT IS SLEEPING COMFORTABLY, 1:1 SITTER AT BEDSIDE. CONTINUING TO MONITOR CLOSELY FOR SAFETY & BEHAVIOR.
--- NOTE | 2019-11-11 06:09 | NUR ---
REFUSED AM LABS PATIENT REFUSED AM LABS, EASILY AGITATED & DESPITE OF RISKS & BENEFITS EXPLANATIONS, PT. CONTINUED TO REFUSE AM LABS.
[2019-11-11 08:00] VITALS: BP 137/74
[2019-11-11] MEDS: SPIRONOLACTONE 25 MG TABLET PO SCH (10:16)
[2019-11-11] MEDS: METOPROLOL SUCCINATE 50 MG TAB.SR.24H PO SCH (10:16)
[2019-11-11] MEDS: PANTOPRAZOLE 40 MG TABLET.DR PO SCH (10:16)
[2019-11-11] MEDS: CLOTRIMAZOLE 1% CREAM 24 GM TUBE TP SCH ×2 (10:17→18:09)
[2019-11-11] MEDS: CLOTRIMAZOLE 1% 15 GM TUBE TP SCH ×2 (10:17→18:09)
[2019-11-11] MEDS: LETROZOLE 2.5 MG TABLET PO SCH (10:17)
[2019-11-11] MEDS: SODIUM CHLORIDE 5% OPHTH OINT 3.5 GM TUBE RIGHTEYE SCH ×3 (10:18→17:00)
[2019-11-11] MEDS: APIXABAN 2.5 MG TABLET PO SCH ×2 (10:19→18:07)
--- NOTE | 2019-11-11 11:33 | NUR ---
REFUSED AM LAB WORK.
[2019-11-11] MEDS: Z GUARD REMEDY 2 OZ OINT TP SCH (12:28)
[2019-11-11 16:00] VITALS: BP 151/72
--- NOTE | 2019-11-11 16:00 | NUR ---
GROUP NOTE: SW encouraged pt to attend group on this present day discussing "discharge planning." Pt appeared confused, disorganized, disoriented and appeared to be responding to internal stimuli as she was whispering then stated, "the aliens are saying to leave right now and that I should stay here longer." SW attempted to provide reality-based intervention but pt was easily agitated and told SW to leave.
--- NOTE | 2019-11-11 18:30 | NUR ---
RESISTANT TO TAKE MEDS,BUT MOSTLY NON COMPLIANT.
--- NOTE | 2019-11-11 19:25 | NUR ---
GPS RN OPENING NOTES PATIENT IN BED ALERT AND ORIENTED X 1-2. BREATHING REGULAR AND UNLABORED ON ROOM AIR. NO S/S OF PAIN.DISCOMFORT NOTED AT THIS TIME. REMAINED CALM AND COOPERATIVE, MED COMPLIANT. MAINTAINED ON 1:1 SITTER. WILL CONTINUE TO MONITOR FOR SAFETY AND BEHAVIOR.
[2019-11-11 20:32] VITALS: BP 108/57
[2019-11-11] MEDS: SENNOSIDES 8.6 MG TABLET PO SCH (21:31)
[2019-11-11] MEDS: MIRTAZAPINE 15 MG TABLET PO SCH (21:31)
[2019-11-11] MEDS: ATORVASTATIN 10 MG TABLET PO SCH (21:31)
[2019-11-11] MEDS: LATANOPROST EYE DROP 0.005% 2.5 ML BOTTLE RIGHTEYE SCH (21:31)
[2019-11-11 22:00] VITALS: BP 108/57
--- NOTE | 2019-11-12 06:15 | NUR ---
GPS RN CLOSING NOTES PATIENT IN BED ASLEEP WITH NO S/S OF DISTRESS NOTED. NO S/S OF PAIN/DISCOMFORT OBSERVED. WILL ENDORSE TO MORNING SHIFT FOR CONTINUITY OF CARE.
[2019-11-12] MEDS: PANTOPRAZOLE 40 MG TABLET.DR PO SCH (07:30)
[2019-11-12 08:00] VITALS: BP_SYST 111; BP_DIAS 50; BP_DIAS 66
[2019-11-12] MEDS: SODIUM CHLORIDE 5% OPHTH OINT 3.5 GM TUBE RIGHTEYE SCH ×3 (09:00→16:36)
[2019-11-12] MEDS: LETROZOLE 2.5 MG TABLET PO SCH (09:00)
[2019-11-12] MEDS: SPIRONOLACTONE 25 MG TABLET PO SCH (09:00)
[2019-11-12] MEDS: METOPROLOL SUCCINATE 50 MG TAB.SR.24H PO SCH (09:00)
[2019-11-12] MEDS: APIXABAN 2.5 MG TABLET PO SCH ×2 (09:00→16:36)
[2019-11-12] MEDS: CLOTRIMAZOLE 1% CREAM 24 GM TUBE TP SCH ×2 (09:48→16:43)
[2019-11-12] MEDS: CLOTRIMAZOLE 1% 15 GM TUBE TP SCH ×2 (09:49→16:42)
[2019-11-12] MEDS: Z GUARD REMEDY 2 OZ OINT TP SCH (09:49)
[2019-11-12 16:00] VITALS: BP 144/69
[2019-11-12 20:00] VITALS: BP 124/61
[2019-11-12] MEDS: ATORVASTATIN 10 MG TABLET PO SCH (21:01)
[2019-11-12] MEDS: SENNOSIDES 8.6 MG TABLET PO SCH (21:01)
[2019-11-12] MEDS: MIRTAZAPINE 15 MG TABLET PO SCH (21:01)
[2019-11-12] MEDS: LATANOPROST EYE DROP 0.005% 2.5 ML BOTTLE RIGHTEYE SCH (21:02)
--- NOTE | 2019-11-12 21:02 | NUR ---
GPS RN REFUSED HS MEDS PT REFUSED ALL DUE HS MEDS, PT SPITS IT OUT UPON GIVING MEDICATION. PT VERBALIZED "NO I REFUSED MEDICATION NO" PT KEPT COVERING HER MOUTH. PT ALSO REFUSED TO HAVE HER EYE DROPS HS. DESPITE EXPLAINING RISKS AND BENEFITS OFFERED 3 TIMES PT REFUSED.
[2019-11-13] MEDS: PANTOPRAZOLE 40 MG TABLET.DR PO SCH (07:30)
[2019-11-13 08:00] VITALS: BP 136/66
[2019-11-13] MEDS: CLOTRIMAZOLE 1% 15 GM TUBE TP SCH ×2 (08:26→17:00)
[2019-11-13] MEDS: SODIUM CHLORIDE 5% OPHTH OINT 3.5 GM TUBE RIGHTEYE SCH ×3 (08:26→16:48)
[2019-11-13] MEDS: Z GUARD REMEDY 2 OZ OINT TP SCH (08:26)
[2019-11-13] MEDS: CLOTRIMAZOLE 1% CREAM 24 GM TUBE TP SCH ×2 (08:26→17:00)
[2019-11-13] MEDS: SPIRONOLACTONE 25 MG TABLET PO SCH (08:27)
[2019-11-13] MEDS: METOPROLOL SUCCINATE 50 MG TAB.SR.24H PO SCH (08:27)
[2019-11-13] MEDS: HALOPERIDOL 1 MG TABLET PO SCH ×2 (08:27→16:41)
[2019-11-13] MEDS: APIXABAN 2.5 MG TABLET PO SCH ×2 (08:27→16:47)
[2019-11-13] MEDS: LETROZOLE 2.5 MG TABLET PO SCH (08:27)
--- NOTE | 2019-11-13 09:00 | NUR ---
gps supervisor cell operation: notes pt refusing all her meds, including eye drop/ointment. pt easily gets agitated and will slap staff hands. reality orientation provided prn. sitter remains at bedside. will continue to monitor.
--- NOTE | 2019-11-13 14:17 | NUR ---
Family Contact: SW spoke to the pts daughter, Katey ([phone]), and informed her of the two facilities that are locked and for dementia care that are within her area. SW stated that she can go and visit them before deciding to place the pt elsewhere. SW and the pts daughter discussed the average length of stay and the pts daughter stated that she wanted the pt to be placed on Hospice but the SW stated that the MD would need to order that. SW stated that she will provide her with an update after the weekend.
--- NOTE | 2019-11-13 14:19 | NUR ---
Group Note: Pt was encouraged to attend group therapy on 11/12/19 at 2pm discussing the social supports. Pt appeared to be confused, disorganized and disoriented. Pt refused to leave her room so the SW asked her to speak about her daughter. Pt looked at the SW and stated that her daughter put her in this correction. SW stated that the plan was for her to go back to her home and this was discussed with the pts daughter. Pt was deemed inappropriate for group due to cognitive impairment.
--- NOTE | 2019-11-13 15:19 | NUR ---
gps water main pipe layer: notes blood drawn at this time. sitter remains at bedside.
[2019-11-13 15:49] LABS: BASOPHILS # (AUTO) 0.1 /CMM (0.0-0.2); BASOPHILS % (AUTO) 0.6 % (0.0-2.0); EOSINOPHILS % (AUTO) 0.8 % (0.0-6.0); HEMATOCRIT 44 % (33-45); HEMOGLOBIN 14.3 g/dL (11.5-14.8); LYMPHOCYTES # (AUTO) 1.8 /CMM (0.8-4.8); LYMPHOCYTES % (AUTO) 20.6 % (20.0-44.0); MEAN CORPUSCULAR HGB CONC 33 g/dl (31.0-36.0); MEAN CORPUSCULAR VOLUME 89 fL (82-100); MONOCYTES # (AUTO) 0.6 /CMM (0.1-1.30); MONOCYTES % (AUTO) 6.4 % (2.0-12.0); NEUTROPHILS # (AUTO) 6.2 /CMM (1.8-8.9); NEUTROPHILS % (AUTO) 71.6 % (43.0-81.0); PLATELET COUNT (AUTO) 153 /CMM (150-450); RED BLOOD CELL COUNT(AUTO) 4.95 MIL/uL (4.0-5.2); WHITE BLOOD COUNT (AUTO) 8.7 K/uL (4.3-11.0)
[2019-11-13 16:00] VITALS: BP 145/76
[2019-11-13 16:09] LABS: CALCIUM, SERUM 9.6 mg/dL (8.5-10.1); POTASSIUM 3.8 mmol/L (3.5-5.1)
--- NOTE | 2019-11-13 17:00 | NUR ---
m/s car electronics installer: notes pharmacy notified, spoke to jorgito (pharmacist) and ask for lotrimin cream (refill).
--- NOTE | 2019-11-13 20:50 | NUR ---
GPS OPENING NOTES: PATIENT AWAKE, CONFUSED AND DISORGANIZED. ENCOURAGE TO VERBALIZED FEELINGS, BUT PATIENT REFUSED TO PARTICIPATE AND EASILY AGITATED. PATIENT APPEARED TO BE DEPRESSED MOOD, ISOLATIVE, DENIES SI/HI, DENIES AH/VH, NO SOB, NO ACUTE DISTRESS, BREATHING EVEN AND UNLABORED, NO S/S OF PAIN AND DISCOMFORT, WILL CONTINUE TO MONITOR Q15 MINS FOR SAFETY
[2019-11-13 20:58] VITALS: BP 118/65
[2019-11-13] MEDS: LATANOPROST EYE DROP 0.005% 2.5 ML BOTTLE RIGHTEYE SCH (22:00)
[2019-11-13] MEDS: DIVALPROEX SODIUM 125 MG CAP.SPRINK PO SCH (22:15)
[2019-11-13] MEDS: SENNOSIDES 8.6 MG TABLET PO SCH (22:15)
[2019-11-13] MEDS: MIRTAZAPINE 15 MG TABLET PO SCH (22:15)
[2019-11-13] MEDS ORDERED: ATORVASTATIN 10 MG TABLET ONE (22:40)
[2019-11-13] MEDS: ATORVASTATIN 10 MG TABLET PO SCH (22:43)
--- NOTE | 2019-11-14 07:27 | NUR ---
GPS RN NOTE, ELECTRICAL SYSTEMS ENGINEER SHERI SOLIS CALL AND STATED, " [facility] IS NOT ABLE TO PROVIDE A SITTER THIS A.M FOR THIS PATIENT. PATIENT ORDERED A SITTER DUE TO BEING LEGALLY BLIND BY DR SALGUERO. STAFF WILL CONTINUE TO MONITOR PATIENT Q15 MIN FOR SAFETY.
[2019-11-14] MEDS: PANTOPRAZOLE 40 MG TABLET.DR PO SCH (07:46)
[2019-11-14 08:00] VITALS: BP 136/57
[2019-11-14] MEDS: CLOTRIMAZOLE 1% CREAM 24 GM TUBE TP SCH (09:00)
[2019-11-14] MEDS: Z GUARD REMEDY 2 OZ OINT TP SCH (09:00)
--- NOTE | 2019-11-14 09:00 | NUR ---
RN NOTE- RX/ PT HAS TWO ORDERS FOR CLOTRIMAZOLE AF CREME. ONE IS HOME MED AND OTHER IS FROM [place] RN. APPLIED ONE PER [place] RN ORDERS. WILL CLARIFY DUPLICATE WHEN MD COMES TO UNIT.
--- NOTE | 2019-11-14 09:57 | NUR ---
RN NOTE- PT IN BED, LETHARGIC, SOMNOLENT. REPOSITIONED FOR COMFORT.
[2019-11-14] MEDS: HALOPERIDOL 1 MG TABLET PO SCH ×2 (09:59→17:27)
[2019-11-14] MEDS: METOPROLOL SUCCINATE 50 MG TAB.SR.24H PO SCH (09:59)
[2019-11-14] MEDS: SPIRONOLACTONE 25 MG TABLET PO SCH (10:01)
[2019-11-14] MEDS: APIXABAN 2.5 MG TABLET PO SCH ×2 (10:01→17:28)
[2019-11-14] MEDS: DIVALPROEX SODIUM 125 MG CAP.SPRINK PO SCH ×2 (10:01→21:33)
[2019-11-14] MEDS: LETROZOLE 2.5 MG TABLET PO SCH (10:03)
[2019-11-14] MEDS: SODIUM CHLORIDE 5% OPHTH OINT 3.5 GM TUBE RIGHTEYE SCH ×2 (10:04→12:31)
[2019-11-14] MEDS: CLOTRIMAZOLE 1% 15 GM TUBE TP SCH ×2 (10:04→17:27)
--- NOTE | 2019-11-14 14:24 | NUR ---
RN NOTE- MEDICATIONS/ DR ARANGO CAME IN TO SEE PT. HE DISCONTINUED EYE DROPS, EYE OINTMENT PT REFUSES AND FIGHTS DURING ADMINISTRATION. CLOTRIMAZOLE CREME ORDER WAS DUPLICATE SO DR ARANGO HAD ME DC THE HOME MED ORDER AND WE LEFT [place] RN ORDER FROM NOV 10.
[2019-11-14 16:00] VITALS: BP 122/58
[2019-11-14 20:01] VITALS: BP 122/74
[2019-11-14] MEDS: SENNOSIDES 8.6 MG TABLET PO SCH (21:34)
[2019-11-14] MEDS: MIRTAZAPINE 15 MG TABLET PO SCH (21:34)
[2019-11-14] MEDS: ATORVASTATIN 10 MG TABLET PO SCH (21:35)
--- NOTE | 2019-11-14 21:41 | NUR ---
GPS RN NOTES PT TOOK MEDS CRUSHED, BUT SPIT MOST OF THEM OUT. STATES " TASTES HORRIBLE". WILL CONTINUE TO MONITOR
[2019-11-15] MEDS: PANTOPRAZOLE 40 MG TABLET.DR PO SCH (07:45)
[2019-11-15 08:00] VITALS: BP 129/65
[2019-11-15] MEDS: APIXABAN 2.5 MG TABLET PO SCH ×2 (08:18→17:13)
[2019-11-15] MEDS: METOPROLOL SUCCINATE 50 MG TAB.SR.24H PO SCH (08:18)
[2019-11-15] MEDS: SPIRONOLACTONE 25 MG TABLET PO SCH (08:19)
[2019-11-15] MEDS: HALOPERIDOL 1 MG TABLET PO SCH ×2 (08:19→17:12)
[2019-11-15] MEDS: DIVALPROEX SODIUM 125 MG CAP.SPRINK PO SCH ×2 (08:19→21:19)
[2019-11-15] MEDS: Z GUARD REMEDY 2 OZ OINT TP SCH (08:21)
[2019-11-15] MEDS: CLOTRIMAZOLE 1% 15 GM TUBE TP SCH ×2 (08:21→17:22)
[2019-11-15] MEDS: LETROZOLE 2.5 MG TABLET PO SCH (08:21)
--- NOTE | 2019-11-15 10:05 | NUR ---
RN NOTE- IN BED ON 1:1. NO ATTEMPTS AT CLIMBING OOB ON HER OWN. NO BEHAVIORAL ISSUES. PT CONSUMED ONLY YOGURT AND ORANGE JUICE THIS MORNING. MED COMPLIANT. SKIN CARE COMPLETED. CONFUSED AND ORIENTED TO PERSON ONLY. REPOSITIONED FOR COMFORT.
[2019-11-15 16:00] VITALS: BP 104/58
[2019-11-15 20:20] VITALS: BP 104/64
[2019-11-15] MEDS: SENNOSIDES 8.6 MG TABLET PO SCH (21:18)
[2019-11-15] MEDS: ATORVASTATIN 10 MG TABLET PO SCH (21:19)
[2019-11-15] MEDS: MIRTAZAPINE 15 MG TABLET PO SCH (21:20)
[2019-11-16] MEDS: PANTOPRAZOLE 40 MG TABLET.DR PO SCH ×2 (07:46→08:31)
[2019-11-16 08:00] VITALS: BP 124/62
[2019-11-16] MEDS: DIVALPROEX SODIUM 125 MG CAP.SPRINK PO SCH ×2 (08:30→21:40)
[2019-11-16] MEDS: HALOPERIDOL 1 MG TABLET PO SCH ×2 (08:31→16:36)
[2019-11-16] MEDS: SPIRONOLACTONE 25 MG TABLET PO SCH (08:31)
[2019-11-16] MEDS: METOPROLOL SUCCINATE 50 MG TAB.SR.24H PO SCH (08:31)
--- NOTE | 2019-11-16 08:31 | NUR ---
Probable Cause (PC) Hearing: SW spoke to the pts daughter, Katey ([phone]), and informed her that the pt is going to be having a hearing today and that entails a financial coordinator deciding whether or not the pt will remain on her hold today. LILIA stated that she would inform the daughter about the results of the hearing.
[2019-11-16] MEDS: APIXABAN 2.5 MG TABLET PO SCH ×2 (08:32→16:36)
[2019-11-16] MEDS: LETROZOLE 2.5 MG TABLET PO SCH (08:33)
[2019-11-16] MEDS: CLOTRIMAZOLE 1% 15 GM TUBE TP SCH ×2 (08:33→16:40)
[2019-11-16] MEDS: Z GUARD REMEDY 2 OZ OINT TP SCH (08:34)
--- NOTE | 2019-11-16 09:00 | NUR ---
RN NOTE- NO BEHAVIORAL ISSUES.PT CONSUMED FULL BREAKFAST THIS MORNING. MED COMPLIANT. SKIN CARE COMPLETED. CONFUSED AND ORIENTED TO PERSON ONLY. REPOSITIONED FOR COMFORT.
--- NOTE | 2019-11-16 19:15 | NUR ---
GPS RN opening notes Received Pt in bed and awake. Pt is alert and orientedX1, anxious, forgetful, confused and restless. Pt's family at the bedside. Respiration is normal in room air. No SOB. No S/S of distress noted. VS is stable. Offered fluids and snacks. Pt denies SI/HI at this time. Reality orientation provided. Safety precautions is maintained. Turned and repositioned Q 2 Hr. Will continue to monitor for mood safety and behavior Q 15 mins checks according to [facility] hospital protocol.
[2019-11-16 19:59] VITALS: BP 115/44
[2019-11-16 20:00] VITALS: BP 115/44
[2019-11-16] MEDS: SENNOSIDES 8.6 MG TABLET PO SCH (21:39)
[2019-11-16] MEDS: MIRTAZAPINE 15 MG TABLET PO SCH (21:40)
[2019-11-16] MEDS: ATORVASTATIN 10 MG TABLET PO SCH (21:42)
--- NOTE | 2019-11-17 07:24 | NUR ---
GPS RN closing notes Pt is resting in bed comfortably. Respiration is normal. No SOB. No S/S of distress noted. VS is stable. Routine meds were given as ordered. Kept Pt clean, dry and comfortable. Turned and repositioned Q 2 Hr. All needs met and attended. Safety precautions is maintained. Will endorse to morning nurse for DEZ.
[2019-11-17 08:00] VITALS: BP 116/89
--- NOTE | 2019-11-17 08:31 | NUR ---
Family Contact: SW called the pts daughter, Katey ([phone]), and left a voicemail stating that the MD put in an order to discharge the pt back to the SNF. LILIA asked for a call back so that this discharge plan can be discussed.
--- NOTE | 2019-11-17 08:37 | NUR ---
Family Contact: LILIA spoke to the pts daughter, Katey ([phone]), after she called back once she heard the SW's voicemail. LILIA stated that the pt has shown improvement and that the MD feels that the pt can be discharged today. LILIA stated that she will inform her about the aftercare team that will be assigned to the pt.
--- NOTE | 2019-11-17 08:39 | NUR ---
Facility Contact: SW called [facility] ([phone]) three times within the past 10 minutes and was hung up on each time before she could speak to someone in the Admissions Department.
[2019-11-17] MEDS: HALOPERIDOL 1 MG TABLET PO SCH (09:25)
[2019-11-17] MEDS: DIVALPROEX SODIUM 125 MG CAP.SPRINK PO SCH (09:25)
[2019-11-17] MEDS: SPIRONOLACTONE 25 MG TABLET PO SCH (09:25)
[2019-11-17 09:27] VITALS: BP 116/89
[2019-11-17] MEDS: METOPROLOL SUCCINATE 50 MG TAB.SR.24H PO SCH (09:27)
--- NOTE | 2019-11-17 09:28 | NUR ---
Facility Contact: LILIA called [facility] ([phone]) and spoke to Tila from the Admissions Department who stated that she would like updated notes to be faxed to: [phone]. LILIA faxed over the most updated notes.
[2019-11-17] MEDS: CLOTRIMAZOLE 1% 15 GM TUBE TP SCH (09:34)
[2019-11-17] MEDS: APIXABAN 2.5 MG TABLET PO SCH (09:34)
[2019-11-17] MEDS: Z GUARD REMEDY 2 OZ OINT TP SCH (09:34)
[2019-11-17] MEDS: LETROZOLE 2.5 MG TABLET PO SCH (09:35)
--- NOTE | 2019-11-17 09:58 | NUR ---
GPS RN OPENING NOTE: RECEIVED PATIENT IN BED. NO BEHAVIORAL ISSUES NOTED.PT CONSUMED 50% OF BREAKFAST THIS MORNING. MED COMPLIANT. SKIN CARE COMPLETED. CONFUSED AND ORIENTED TO PERSON ONLY. REPOSITIONED FOR COMFORT. UNABLE TO COMPREHEND OR ANSWER QUESTIONS RELATED TO SI/HI AND VAH. WILL CONTINUE TO MONITOR Q15 FOR MOOD, SAFETY AND BEHAVIOR Addendum: 11/17/19 at 0958 by SARAH SMITH RN PATIENT ON 1:1
--- NOTE | 2019-11-17 13:56 | NUR ---
Discharge Note: Pt was discharged to [facility] ([facility]) located at [address] [place], [place] [id number]; ([phone]). Pt was transported via [facility] at 2PM. Pts daughter, Katey ([phone]), was informed of the discharge. Upon discharge, the pt appeared to be in a euthymic mood and presented with a calm affect. Pt appeared to oriented x2 (self and place). Pt was well groomed and appropriately dressed. Pt denied both suicidal and homicidal ideation as well as auditory and visual hallucinations. Pt will continue to be under the care of her psychiatrist, Dr. Meza, located at [address] [place] [id number]; ([phone]) and her procurement inspector, Dr. Wellington, located at [address] [place] [address] [address] [address]; .
--- NOTE | 2019-11-17 14:00 | NUR ---
GPS RN NOTE CALLED AND LEFT VM (AM AND PM)FOR DR. AHYES TWICE. TEXTED DR ARANGO WELL WAITING FOR RESPONSE FOR MED RECON FOR DISCHARGE Addendum: 11/17/19 at 1404 by SARAH SMITH RN DR HAYES CALLED BACK DR. ARANGO IS CLIENT INSIGHTS CONSULTANT
--- NOTE | 2019-11-17 15:25 | NUR ---
PATIENT IS A 79 YEAR OLD FEMALE DISCHARGED TO [facility] ([facility]). PATIENT IS IN STABLE CONDITION. VSS. NO ACUTE DISTRESS NOTED. NO COMPLAINTS. COMPLIANT WITH MEDICATION MANAGEMENT. COOPERATIVE WITH PLAN OF CARE. PSYCHIATRIC TREATMENT PLANS MET. MEDICAL TREATMENT PLANS DEFERRED FOR CONTINUAL MONITORING. DENIES SI/HI VAH AT THE TIME OF DISCHARGE. SKIN CHECK DONE WITH WOUND PICTURES IN CHART. EDUCATED PATIENT ABOUT AFTERCARE WITH COPY PROVIDED. RETURNED PERSONAL BELONGINGS TO PATIENT. MEDICATIONS RECONCILED ALONG WITH PSYCHIATRIC DISCHARGE ORDERS BY DR SALGUERO. MEDICAL MEDICATIONS RECONCILED WITH DR ARANGO. DISCHARGE PAPERWORK SIGNED BY TWO NURSES PATIENT UNABLE TO SIGN DUE TO CONFUSION AND BLINDNESS. FOR FOLLOW UP WITH PSYCHIATRIST AND LEARNING DISABILITIES RESOURCE TEACHER WITHIN 1 WEEK. PATIENT LEFT THE [facility] VIA AMBULANCE AT 1525. TRIP NUMBER [id number]. .
== END 2019-11-17 15:25 | DRG 885 ==
LOC: GPS 19:39
PROVIDERS: ADMIT Psychiatry & Neurology Psychiatry; ATTEND Internal Medicine
DX: F39 Unspecified mood [affective] disorder (principal); G93.40 Encephalopathy, unspecified; F03.91 Unspecified dementia, unspecified severity, with behavioral disturbance; F29 Unspecified psychosis not due to a substance or known physiological condition; Z99.3 Dependence on wheelchair; Z91.14 Patient's other noncompliance with medication regimen; Z85.3 Personal history of malignant neoplasm of breast; I48.0 Paroxysmal atrial fibrillation; R63.0 Anorexia; Z68.23 Body mass index [BMI] 23.0-23.9, adult; R63.4 Abnormal weight loss; Z79.01 Long term (current) use of anticoagulants; I10 Essential (primary) hypertension; E78.5 Hyperlipidemia, unspecified; H54.7 Unspecified visual loss; J44.9 Chronic obstructive pulmonary disease, unspecified; R62.7 Adult failure to thrive; F17.200 Nicotine dependence, unspecified, uncomplicated
CPT/HCPCS: 36415; 80048-TC; 80061-TC; 80164-TC; 82962-TC; 85025-TC; 92611-TC; 97530-TC